=== PATIENT | female | born 1965 | race Caucasian/White ===

== ENCOUNTER → 2018-02-25 | Outpatient (CLI) | payer BC ==
[2018-02-25 15:56] VITALS: BP 144/69; PULSE 95; TEMP 98.1; BMI 33.8
--- NOTE | 2018-02-25 16:39 | P.HPBAR ---
Bariatric H&P - History & Physicial H&P Date: 02/25/18 History & Physicial: Visit/CC: bariatric follow up visit Patient initial contact: Initial weight: Initial weight in pounds: Height: 5 ft 5 in Initial BMI: Last weight: Current weight: 92.261 kg Current weight in pounds: 203.40 Current BMI: 33.8 [place] body weight (based on NIH guidelines): 56.699 kg Excess body weight loss: The patient is a 52 year-old F who presents for Bariatric Assessment. Patient presents today for bariatric follow. She's had a previous history of a gastric bypass performed many years ago by Dr. Tyelr. She was last seen by myself approximate 7 years ago. She's had a 50 pound weight gain over the last 7 years. She's had some mild.. Past Medical History Past Medical History: GERD/Reflux History of Any Multi-Drug Resistant Organisms: None Reported Past Surgical History: Appendectomy, Bariatric Surgery, Section, Hernia Repair, Hysterectomy Additional Past Surgical History / Comment(s): gastric bypass 2002 panniculectomy 2003 Past Anesthesia/Blood Transfusion Reactions: No Reported Reaction Past Psychological History: Anxiety Smoking Status: Current every day smoker Past Alcohol Use History: Rare Past Drug Use History: None Reported Surgical - Exam Vital Signs Temp Pulse BP 98.1 F 95 144/69 02/25/18 15:54 02/25/18 15:54 02/25/18 15:54 - General well developed, no distress - Eyes PERRL - ENT normal pinna - Neck no masses - Respiratory normal expansion - Cardiovascular Rhythm: regular - Abdomen Abdomen: soft, non tender Bariatric Assessment & Plan Plan: History gastric bypass with weight gain and GERD symptoms. Patient will undergo esophagram. She'll be scheduled see the dietitian. I will see her back in 1 month. Bariatric Checklist Checklist: Plan: Checklist: EGD: 1. Hiatal hernia: 2. H. Pylori: HgbA1c: Vitamin D: Smoking: Current every day smoker Primary care physician referral: dr mckeon Psychiatry clearance: Cardiology clearance: Sleep study: Diet journal: VTE risk score: VTE risk level: Rehab needs at discharge:
== END ==
LOC: BARWHC3 14:45
PROVIDERS: ATTEND Surgery
DX: Z48.815 Encounter for surgical aftercare following surgery on the digestive system (principal); K21.9 Gastro-esophageal reflux disease without esophagitis; F17.200 Nicotine dependence, unspecified, uncomplicated; Z98.84 Bariatric surgery status
CPT/HCPCS: 99211

== ENCOUNTER 2018-03-15 07:15 | Day surgery (SDC) | payer BC ==
[2018-03-13 10:57] VITALS: BMI 34.8
[~2018-03-15 07:15] MED LIST: LIDOCAINE 1% 20 ML VIAL (10MG/ML) FOR IV START INTRADERMA PRN; MIDAZOLAM 2 MG/2 ML VIAL IV PRN
[2018-03-15 07:41] VITALS: RESP 16; TEMP 97.2
[2018-03-15] MEDS: LACTATED RINGERS 1,000 ML IV SCH ×2 (07:48→08:24)
[2018-03-15] MEDS ORDERED: PROPOFOL 10 MG/ML 20 ML VIAL IV ONE (08:25)
[2018-03-15] MEDS ORDERED: LIDOCAINE 1% INJ 10MG/ML (20 ML MDV) ONE (08:25)
--- NOTE | 2018-03-15 08:37 | P.GSHP ---
History of Present Illness H&P Date: 03/15/18 Chief Complaint: Dysphagia, GERD This 52-year-old female referred from Dr. Mcintosh. Patient has complaints of GERD and dysphagia. She is a previous history of a gastric bypass. Past Medical History Past Medical History: GERD/Reflux Additional Past Medical History / Comment(s): Recent rapid unexplained weight gain. History of Any Multi-Drug Resistant Organisms: None Reported Past Surgical History: Appendectomy, Bariatric Surgery, Section, Hernia Repair, Hysterectomy Additional Past Surgical History / Comment(s): gastric bypass 2002 panniculectomy 2004 Past Anesthesia/Blood Transfusion Reactions: No Reported Reaction Past Psychological History: No Psychological Hx Reported Smoking Status: Current every day smoker Past Alcohol Use History: Occasional Additional Past Alcohol Use History / Comment(s): Smokes 1/2 PPD, has been smoking 30 yrs total on and off. Past Drug Use History: None Reported - Past Family History Mother Family Medical History: Cancer Additional Family Medical History / Comment(s): Lung and brain cancer, lupus Medications and Allergies Home Medications Medication Instructions Recorded Confirmed Type Buprenorphine HCl/Naloxone HCl 1 tab PO DAILY 02/25/18 03/15/18 History [Suboxone 8 mg-2 mg Sl Film] Phentermine HCl [Adipex P] 7.5 mg PO DAILY 02/25/18 03/15/18 History Zolpidem [Ambien] 10 mg PO HS 02/25/18 03/15/18 History Estradiol [Estrace] 0.5 mg PO DAILY 03/13/18 03/15/18 History Progesterone, Micronized 200 mg PO DAILY 03/13/18 03/15/18 History [Progesterone] Allergies Allergy/AdvReac Type Severity Reaction Status Date / Time No Known Allergies Allergy Verified 03/15/18 07:29 Surgical - Exam Vital Signs Temp Pulse Resp BP Pulse Ox 97.2 F L 100 16 126/58 94 L 03/15/18 07:39 03/15/18 07:39 03/15/18 07:39 03/15/18 07:39 03/15/18 07:39 - General well developed, no distress - Eyes PERRL - ENT normal pinna - Neck no masses - Respiratory normal expansion - Cardiovascular Rhythm: regular - Abdomen Abdomen: soft, non tender Assessment and Plan Assessment: GERD, dysphagia, history of gastric bypass. We'll perform EGD.
--- NOTE | 2018-03-15 08:48 | P.OP ---
Date of Procedure: 03/15/18 Preoperative Diagnosis: Dysphagia Postoperative Diagnosis: Severe erosive esophagitis Procedure(s) Performed: EGD Anesthesia: MAC Surgeon: Carlito Rogers Pathology: other (Esophagus) Condition: stable Disposition: PACU Description of Procedure: The patient's placed on the endoscopy table in the lateral position. She received IV sedation. The gastroscope placed oropharynx and passed in the esophagus and stomach. Scope was then placed through gastrojejunostomy. There is no evidence of any marginal ulcer or obstruction of the gastrojejunostomy. The jejunal limb was entered to approximately 70 cm without evidence of inflammation or obstruction. Scope summer brought back there was a small gastric pouch. The patient had severe esophagitis. With erosions and some evidence of bleeding. Several biopsies distal esophagus were performed. The GE junction was at 40 cm.. There was no evidence of hiatal hernia. The proximal esophagus appeared normal. Scope was withdrawn for patient.
[2018-03-15 09:14] VITALS: BP 108/69; PULSE 88
== END 2018-03-15 09:31 | disposition home or self-care (01) ==
LOC: ORWHC2ENDO 07:15
PROVIDERS: ATTEND Surgery
DX: K22.10 Ulcer of esophagus without bleeding (principal); K21.0 Gastro-esophageal reflux disease with esophagitis; Z98.84 Bariatric surgery status; F17.210 Nicotine dependence, cigarettes, uncomplicated; Z79.890 Hormone replacement therapy; Z79.899 Other long term (current) drug therapy
CPT/HCPCS: 88305; 88312; 43239; J2001; J2704

== ENCOUNTER → 2023-06-18 | Outpatient (CLI) | payer BC ==
--- NOTE | 2023-06-20 23:20 | MM ---
Reason for Exam: Screening (asymptomatic). Last mammogram was performed 1 year(s) and 9 month(s) ago. Patient History: Menarche at age 16. First Full-Term at age 19. Hysterectomy at age 40. Patient used Estrogen for 1 year. Benign Excisional Biopsy on the right side. Risk Values: Enriqueta 5 year model risk: 1.0%. NCI Lifetime model risk: 6.2%. Prior Study Comparison: 02/23/2010 Bilateral Diagnostic Mammogram, [facility]. 05/21/2012 Bilateral Diagnostic Mammogram, [facility]. 10/06/2014 Bilateral Diagnostic Mammogram, [facility]. 07/29/2020 Bilateral Screening Mammogram, [facility]. 09/27/2021 Bilateral Screening Mammogram, [facility]. Tissue Density: The breast tissue is heterogeneously dense. This may lower the sensitivity of mammography. Findings: Analyzed By CAD. Areas of asymmetric density appear to have been present variably on prior exams. There is no suspicious group of microcalcifications or new suspicious mass in either breast. Overall Assessment: Benign, BI-RAD 2 Management: Screening Mammogram of both breasts in 1 year. . Patient should continue monthly self-breast exams. A clinical breast exam by your physician is recommended on an annual basis. This exam should not preclude additional follow-up of suspicious palpable abnormalities. Note on Enriqueta scores and lifetime risk: 1. A Enriqueta score greater than 3% is considered moderate risk. If this is the case, consider specialist referral to assess eligibility for a risk reducing agent. 2. If overall lifetime risk for the development of breast cancer is 20% or higher, the patient may qualify for future screening with alternating mammogram and breast MRI. Electronically signed and approved by: Ed Hutson M.D. Radiologist
== END | disposition home or self-care (01) ==
LOC: RADMAMWWP 15:16
PROVIDERS: ATTEND Obstetrics & Gynecology
DX: Z12.31 Encounter for screening mammogram for malignant neoplasm of breast (principal)
CPT/HCPCS: 77067

== ENCOUNTER → 2024-01-30 | Outpatient (CLI) | payer OTHER ==
--- NOTE | 2024-01-30 12:25 | CTL ---
EXAMINATION TYPE: CT Low Dose Lung DATE OF EXAM ORDERED: 01/30/2024 HISTORY: 58 year-old female Z87.891, personal history of nicotine dependence, current smoker with 30 pack-year history. Lung cancer screening CT DLP: 91.[address] CTDI: 2.4 mGy Automated exposure control for dose reduction was used. SCREENING VISIT: Baseline COMPARISON: None TECHNIQUE: Low dose computed tomography scan was performed through the chest with coronal and sagitta l reconstructions. CT DIAGNOSTIC QUALITY: Satisfactory FINDINGS: The heart is normal size without pericardial effusion. Aorta normal caliber with a bovine configuration to the aortic arch. No thoracic lymphadenopathy by CT size criteria. Lungs show [id number] diffuse bronchial wall thickening. Minimal biapical pleural parenchymal s carring. No consolidation or pleural effusion.. Tiny 3 mm right basilar pulmonary nodule, axial image 211. Tiny 3 mm posterior right mid lung pulmonary nodule, axial image 157. No additional pulmonary nodules are seen. Post surgical change which may relate to Tanvir-en-Y gastric bypass and can be correlated with patient' s surgical history. Tiny hiatal hernia suggested. Low attenuation of the hepatic parenchyma suggestin g fatty infiltration. Bones: No osseous destructive process. Normal variant sternal foramen. IMPRESSION: 1. LungRADS 2, benign. A couple tiny 3 mm pulmonary nodule on the right on baseline screening. 2. Bronchial wall thickening suggests bronchitis or chronic asthma. 3. Postsurgical changes in the upper abdomen. Correlate with surgical history; possible Tanvir-en-Y gas tric bypass. Tiny hiatal hernia and hepatic steatosis. CT LUNG RAD AND CT CHEST RECOMMENDATION: Lung-Rad 2 Benign Appearance or Behavior: Continue annual sc reening with LDCT in 12 months. S Modifier (other clinically significant findings): None
== END | disposition home or self-care (01) ==
LOC: RADCTMAIN 10:15
PROVIDERS: ATTEND Family Medicine
DX: Z12.2 Encounter for screening for malignant neoplasm of respiratory organs (principal); R91.1 Solitary pulmonary nodule; K76.0 Fatty (change of) liver, not elsewhere classified; K44.9 Diaphragmatic hernia without obstruction or gangrene; Z87.891 Personal history of nicotine dependence
CPT/HCPCS: 71271